=== PATIENT | female | born 1960 | race Two or more races ===

== ENCOUNTER 2024-07-19 14:19 | Outpatient (CLI) | payer OTHER | END 2024-07-19 14:22 | disposition home or self-care (01) | LOC: SONOGRAMA 14:19 | PROVIDERS: ATTEND Pathology Anatomic Pathology & Clinical Pathology | DX: E04.1 Nontoxic single thyroid nodule (principal); D34 Benign neoplasm of thyroid gland; E06.3 Autoimmune thyroiditis ==